=== PATIENT | male | born 1955 | race Two or more races ===

== ENCOUNTER 2017-06-09 08:13 | Emergency (ER) | payer OTHER ==
[~2017-06-09] VITALS: Ht 175.3 cm; Wt 80.3 kg
--- NOTE | 2017-06-09 08:13 | NUR ---
PT. BB SELF C/O LEFT SIDED ABD PAIN RADIATING TO LEFT SIDE OF BACK. NO ACUTE DISTRESS NOTED. PT. AAOX4 PT AMBULATORY WITH STEADY GAIT. VS STABLE. MD AT BEDSIDE FOR EVAL.
[2017-06-09 08:50] LABS: BASOPHILS % (AUTO) 0.8 % (0.0-2.0); EOSINOPHILS # (AUTO) 0.1 /CMM (0.0-0.7); EOSINOPHILS % (AUTO) 2.8 % (0.0-6.0); HEMATOCRIT 43 % (39-51); HEMOGLOBIN 14.2 g/dL (13.5-17.5); LYMPHOCYTES # (AUTO) 1.5 /CMM (0.8-4.8); LYMPHOCYTES % (AUTO) 48.1 % (20.0-44.0); MEAN CORPUSCULAR HEMOGLOBIN 26 PG (26.0-33.0); MEAN CORPUSCULAR HGB CONC 33 g/dl (31.0-36.0); MEAN CORPUSCULAR VOLUME 78 fL (80-96); MONOCYTES # (AUTO) 0.4 /CMM (0.1-1.30); MONOCYTES % (AUTO) 14.4 % (2.0-12.0); NEUTROPHILS % (AUTO) 33.9 % (43.0-81.0); PLATELET COUNT (AUTO) 193 /CMM (150-450); RDW COEFFICIENT OF VARIATION 14.1 (11.5-15.0); RED BLOOD CELL COUNT(AUTO) 5.48 MIL/uL (4.5-6.0)
[2017-06-09] MEDS ORDERED: KETOROLAC TROMETHAMINE INJ 30 MG/ML VIAL ONE (08:51)
[2017-06-09] MEDS ORDERED: ONDANSETRON HCL/PF 4 MG/2 ML VIAL ONE (08:52)
[2017-06-09 09:00] LABS: CREATININE 1.2 mg/dL (0.6-1.3); POTASSIUM 4.1 mmol/L (3.5-5.1)
[2017-06-09] MEDS ORDERED: KETOROLAC TROMETHAMINE INJ 30 MG/ML VIAL IV ONE (09:00)
[2017-06-09] MEDS ORDERED: ONDANSETRON HCL/PF 4 MG/2 ML VIAL IVP ONE (09:00)
[2017-06-09 09:07] LABS: ALBUMIN 3.7 g/dL (3.4-5.0); BILIRUBIN,DIRECT 0.1 mg/dL (0.0-0.2); BILIRUBIN,TOTAL 0.5 mg/dL (0.2-1.0); TOTAL PROTEIN, SERUM 7.2 g/dL (6.4-8.2)
--- NOTE | 2017-06-09 09:10 | NUR ---
PT. AMBULATED TO RESTROOM TO GIVE URINE SPECIMEN. CALLED LAB FOR [facility]ICK [facility]KER
[2017-06-09] MEDS ORDERED: IV NS 0.9% 1,000 ML BAG IV ONE (09:30)
[2017-06-09 09:43] LABS: APPEARANCE,URINE CLEAR (CLEAR); BILIRUBIN,URINE NEGATIVE (NEGATIVE); BLOOD, URINE TRACE-INTA Ery/uL (NEGATIVE); COLOR,URINE YELLOW (YELLOW); KETONES,URINE NEGATIVE (NEGATIVE); LEUKOCYTE ESTERASE ,URINE NEGATIVE (NEGATIVE); NITRITE, URINE NEGATIVE (NEGATIVE); PH,URINE 6.5 (5.0-8.0); PROTEIN,URINE TRACE mg/dl (NEGATIVE); UGLUCOSE NEGATIVE (NEGATIVE); UROBILINOGEN,URINE 0.2 EU/dL (0.2)
[2017-06-09] MEDS ORDERED: CT SWABBABLE VALVE TRANS SET 1 EA INFUS.SET MC ONE (09:48)
[2017-06-09] MEDS ORDERED: IOHEXOL-300 100 ML VIAL IV ONE (09:49)
--- NOTE | 2017-06-09 09:59 | NUR ---
PT. TAKEN TO CT VIA WHEELCHAIR BY TECH.
[2017-06-09 10:07] LABS: BACTERIA,URINE Rare /HPF (None Seen); WBC,URINE 0-2 /HPF (0-3)
[2017-06-09 10:08] LABS: SQUAMOUS EPITHELIAL CELL,UR Few /HPF (None Seen)
[2017-06-09] MEDS ORDERED: ASPI-1152 PO (11:17)
[2017-06-09] MEDS ORDERED: PRAV20TA4 PO (11:17)
[2017-06-09] MEDS ORDERED: CLOP75TA15 PO (11:17)
[2017-06-09] MEDS ORDERED: CARV3.12 PO (11:17)
--- NOTE | 2017-06-09 11:30 | NUR ---
CALLED ANGELA AT [facility] [phone], PRESENTED PT FOR TRANSFER, SHE ASKED ME TO FAX FACESHEET, H&P, AND ER NOTES TO THE RN [employer] AT [facility], . SHE ALSO INFORMED ME WE WILL BE GETTING A CALL FROM FOR DR DAYNA VALDES.
--- NOTE | 2017-06-09 11:36 | NUR ---
ON PHONE WITH
--- NOTE | 2017-06-09 12:45 | NUR ---
CALLED ANGELA AT [phone] TO FOLLOW UP WITH BED, SHE SAID SHE IS STILL WAITING AND WILL CALL ME BACK SHORTLY.
--- NOTE | 2017-06-09 13:05 | NUR ---
RECEIVED CALL FROM ANGELA WITH INSURANCE, PT ACCEPTED TO [facility] BY , PT GOING TO MS ROOM 429, NUMBER TO GIVE REPORT IS [phone].
--- NOTE | 2017-06-09 13:11 | NUR ---
REQUESTED AMBULANCE TO GO TO [facility], ETA 10 MIN
--- NOTE | 2017-06-09 13:17 | NUR ---
REPORT GIVEN TO GISELL ALDRIDGE TO [facility].
[2017-06-09 13:24] VITALS: BP 130/82
== END 2017-06-09 14:10 | disposition short-term general hospital (02) ==
LOC: ER 08:17
DX: K85.90 Acute pancreatitis without necrosis or infection, unspecified (principal); D72.819 Decreased white blood cell count, unspecified; N28.0 Ischemia and infarction of kidney; I25.2 Old myocardial infarction; J43.9 Emphysema, unspecified; Z79.82 Long term (current) use of aspirin; Z86.11 Personal history of tuberculosis
CPT/HCPCS: 36415; 74160; 80048; 80076; 81001; 83690; 85025; 96361; 96374; 96375; 99285; A4606; J1885; J2405; J7030; Q9967; Z7610; 81000-TC

== ENCOUNTER 2020-03-22 13:29 | Emergency (ER) | payer MEDICARE, MEDICAID ==
[~2020-03-22] VITALS: Ht 165.1 cm; Wt 87.1 kg
[~2020-03-22 13:29] MED LIST: ASPI-1420 PO; CARV3.12 PO; CLOP75TA15 PO; PRAV20TA4 PO
[2020-03-22 13:30] VITALS: BP 110/74
== END 2020-03-22 15:16 | disposition home or self-care (01) ==
LOC: ER 13:40
DX: S80.812A Abrasion, left lower leg, initial encounter (principal); L03.116 Cellulitis of left lower limb; I25.2 Old myocardial infarction; Z95.5 Presence of coronary angioplasty implant and graft; Z79.899 Other long term (current) drug therapy; X58.XXXA Exposure to other specified factors, initial encounter; Y93.89 Activity, other specified; Y92.89 Other specified places as the place of occurrence of the external cause; Y99.8 Other external cause status
CPT/HCPCS: 73590-TC; 73630-TC